=== PATIENT | female | born 1990 | race African-American/Black ===

== ENCOUNTER 2021-03-06 18:35 | Inpatient (IN) | payer BC ==
[2021-03-06] MEDS ORDERED: BUTORPHANOL TARTRATE 2 MG/ML VIAL IVPB ONE (19:13)
[2021-03-06] MEDS ORDERED: DEXTROSE 5%-LACTATED RINGERS 1,000 ML IV SCH (19:15)
[2021-03-06] MEDS ORDERED: OXYTOCIN 30 UNITS in 0.9% NS 30 UNIT/500 ML INFUS.BAG IVPB SCH (19:30)
[2021-03-06 19:47] LABS: BASO % 0.2 % (0-2.0); EOS % 0.1 % (0-4.5); HEMATOCRIT 33.7 % (32.4-45.2); HEMOGLOBIN 11.1 GM/dL (10.7-15.3); MCH 27.1 pg (25.7-33.7); MEAN CELL VOLUME 82.3 fl (80-96); MEAN PLT VOLUME 8.1 fl (7.5-11.1); MONO % 4.6 % (3.8-10.2); NEUT % 85.1 % (42.8-82.8); PLATELET COUNT 386 10^3/uL (134-434); RBC 4.09 M/mm3 (3.60-5.2); RDW 17.2 % (11.6-15.6); WHITE BLOOD COUNT 10.3 K/mm3 (4.0-10.0)
[2021-03-06 19:59] LABS: INR 0.89 (0.83-1.09); PROTHROMBIN TIME (PATIENT) 10.8 SEC (9.7-13.0)
[2021-03-06] MEDS ORDERED: AMPICILLIN SODIUM 2 GM VIAL ONE (19:59)
[2021-03-06] MEDS ORDERED: AMPICILLIN - 2 GM in SODIUM CHLORIDE 100 ML IVPB ONE (20:00)
[2021-03-06] MEDS ORDERED: PROMETHAZINE HCL 25 MG/1 ML VIAL IVPUSH ONE (20:00)
[2021-03-06 20:02] LABS: ACTIVATED PTT 26.5 SECONDS (25.2-36.5)
[2021-03-06 20:09] LABS: BLOOD UREA NITROGEN 7.5 mg/dL (7-18)
[2021-03-06 20:13] LABS: CREATININE 0.7 mg/dL (0.55-1.3)
[2021-03-06] MEDS ORDERED: OXYTOCIN 20 UNITS in 0.9% NS 20 UNIT/1,000 ML INFUS.BAG IV ONE (20:30)
[2021-03-06] MEDS ORDERED: BENZOCAINE 20% 57 GM BOTTLE TP PRN (20:54)
[2021-03-06] MEDS ORDERED: BENZOCAINE 28 GM HEMORRHOIDAL OINTMENT TP PRN (20:54)
[2021-03-06] MEDS ORDERED: oxyCODONE HCL 5 MG TABLET PO PRN (20:54)
[2021-03-06] MEDS ORDERED: IBUPROFEN 600 MG TABLET (FP) PO PRN (20:54)
[2021-03-06] MEDS ORDERED: ACETAMINOPHEN 325 MG TABLET (FP) PO PRN (20:54)
[2021-03-06] MEDS ORDERED: WITCH HAZEL 50% (TUCKS) 40 PAD/JAR PAD TP PRN (20:54)
[2021-03-06] MEDS ORDERED: METHYLERGONOVINE MALEATE 0.2 MG/1 ML AMP IM PRN (20:54)
[2021-03-06] MEDS ORDERED: BISACODYL 10 MG SUPP.RECT RC PRN (20:54)
[2021-03-06] MEDS ORDERED: OXYTOCIN 20 UNITS in 0.9% NS 20 UNIT/1,000 ML INFUS.BAG IV SCH (21:00)
[2021-03-06 21:06] LABS: HIV INTERPRETATION NEGATIVE (NEGATIVE)
[2021-03-06 21:23] VITALS: BMI 25.7
[2021-03-07] MEDS ORDERED: AMPICILLIN - 1 GM in SODIUM CHLORIDE 100 ML IVPB SCH
[2021-03-07 08:47] LABS: BASO % 0.2 % (0-2.0); EOS % 0.1 % (0-4.5); HEMATOCRIT 30.5 % (32.4-45.2); HEMOGLOBIN 9.6 GM/dL (10.7-15.3); LYMPH % 10.9 % (8-40); MCH 26.3 pg (25.7-33.7); MCHC 31.4 g/dl (32.0-36.0); MEAN CELL VOLUME 83.9 fl (80-96); MEAN PLT VOLUME 8.6 fl (7.5-11.1); MONO % 8.3 % (3.8-10.2); NEUT % 80.5 % (42.8-82.8); PLATELET COUNT 334 10^3/uL (134-434); RBC 3.63 M/mm3 (3.60-5.2); RDW 17.3 % (11.6-15.6); WHITE BLOOD COUNT 15.9 K/mm3 (4.0-10.0)
[2021-03-07] MEDS: PRENATAL VITAMINS W/ FOLIC ACID TABLET (FP) PO SCH (09:33)
[2021-03-07 12:15] LABS: COCAINE, UR NEGATIVE (NEGATIVE); METHADONE, UR NEGATIVE (NEGATIVE); OPIATES, URI NEGATIVE (NEGATIVE); PHENCYCLIDINE,URINE NEGATIVE (NEGATIVE); URINE BENZODIAZEPINES NEGATIVE (NEGATIVE)
[2021-03-07 12:16] LABS: URINE AMPHETAMINES NEGATIVE (NEGATIVE); URINE BARBITURATES NEGATIVE (NEGATIVE)
[2021-03-07] MEDS ORDERED: SENNOSIDES/DOCUSATE COMBO (SENNA PLUS) TABLET (UD) PO PRN (22:00)
[2021-03-08 00:14] VITALS: TEMP 98.2
[2021-03-08] MEDS: PRENATAL VITAMINS W/ FOLIC ACID TABLET (FP) PO SCH (09:48)
[2021-03-08 10:29] VITALS: BP 120/75; PULSE 95
== END 2021-03-08 15:00 | disposition home or self-care (01) | DRG 807 ==
LOC: JDEL 18:35 → JLDR 19:00 → J3W 22:45
PROVIDERS: ADMIT Obstetrics & Gynecology; ATTEND Obstetrics & Gynecology
PROC: 10E0XZZ Delivery of Products of Conception, External Approach (ICD-10-PCS; principal; 2021-03-06)
DX: O42.02 Full-term premature rupture of membranes, onset of labor within 24 hours of rupture (principal); Z37.0 Single live birth; Z3A.38 38 weeks gestation of pregnancy
CPT/HCPCS: 36415; 59409; 80048; 80307; 85025; 85610; 85730; 86762; 86780; 86850; 86900; 86901; 87389; C9803; U0003; U0005